=== PATIENT | female | born 1995 | race Caucasian/White ===

== ENCOUNTER → 2018-02-23 | Outpatient (CLI) | payer OTHER ==
[~2018-02-23] VITALS: Ht 163.8 cm; Wt 98.0 kg
[~2018-02-23] MED LIST: NEXPLANON68 MG ID
[2018-02-23 15:49] VITALS: BP 98/72; PULSE 80
== END ==
LOC: LIGHT 09:20
DX: E16.9 Disorder of pancreatic internal secretion, unspecified (principal); E28.2 Polycystic ovarian syndrome; M15.9 Polyosteoarthritis, unspecified; E66.9 Obesity, unspecified; Z68.36 Body mass index [BMI] 36.0-36.9, adult; Z71.3 Dietary counseling and surveillance
CPT/HCPCS: G0463

== ENCOUNTER → 2018-03-09 | Outpatient (CLI) | payer OTHER | LOC: LIGHT 13:06 | DX: E16.9 Disorder of pancreatic internal secretion, unspecified (principal); E28.2 Polycystic ovarian syndrome; M15.9 Polyosteoarthritis, unspecified; E66.9 Obesity, unspecified; Z68.36 Body mass index [BMI] 36.0-36.9, adult; Z71.3 Dietary counseling and surveillance ==

== ENCOUNTER → 2018-04-06 | Outpatient (CLI) | payer OTHER ==
[~2018-04-06] VITALS: Ht 163.8 cm; Wt 100.0 kg
[~2018-04-06] MED LIST changes: +GLUCOPHAGE500 MG/TAB PO; +PHENTERMINE15 MG PO
[2018-04-06 13:53] VITALS: BP 112/80; PULSE 100
== END ==
LOC: LIGHT 08:32
DX: E16.9 Disorder of pancreatic internal secretion, unspecified (principal); E28.2 Polycystic ovarian syndrome; M15.9 Polyosteoarthritis, unspecified; E66.9 Obesity, unspecified; Z68.37 Body mass index [BMI] 37.0-37.9, adult; Z71.3 Dietary counseling and surveillance
CPT/HCPCS: G0463

== ENCOUNTER → 2018-04-19 | Outpatient (CLI) | payer OTHER | LOC: LIGHT 12:56 | DX: E16.9 Disorder of pancreatic internal secretion, unspecified (principal); E28.2 Polycystic ovarian syndrome; M15.9 Polyosteoarthritis, unspecified; E66.9 Obesity, unspecified; Z68.37 Body mass index [BMI] 37.0-37.9, adult; Z71.3 Dietary counseling and surveillance ==

== ENCOUNTER → 2018-05-04 | Outpatient (CLI) | payer OTHER ==
[~2018-05-04] VITALS: Ht 163.8 cm; Wt 94.8 kg
[~2018-05-04] MED LIST changes: +ADIPEX-P37.5 MG PO; -PHENTERMINE15 MG PO
[2018-05-04 14:19] VITALS: BP 114/80; PULSE 84
== END ==
LOC: LIGHT 14:04
DX: E16.9 Disorder of pancreatic internal secretion, unspecified (principal); E28.2 Polycystic ovarian syndrome; M15.9 Polyosteoarthritis, unspecified; E66.9 Obesity, unspecified; Z68.35 Body mass index [BMI] 35.0-35.9, adult; Z71.3 Dietary counseling and surveillance
CPT/HCPCS: G0463

== ENCOUNTER → 2018-06-17 | Outpatient (CLI) | payer OTHER ==
[~2018-06-17] VITALS: Ht 163.8 cm; Wt 94.8 kg
[2018-06-17 14:16] VITALS: BP 116/72; PULSE 80
== END ==
LOC: LIGHT 10:50
DX: E16.9 Disorder of pancreatic internal secretion, unspecified (principal); E28.2 Polycystic ovarian syndrome; M15.9 Polyosteoarthritis, unspecified; E66.9 Obesity, unspecified; Z68.35 Body mass index [BMI] 35.0-35.9, adult; Z71.3 Dietary counseling and surveillance
CPT/HCPCS: G0463

== ENCOUNTER → 2018-08-05 | Outpatient (CLI) | payer OTHER ==
[~2018-08-05] VITALS: Ht 163.8 cm; Wt 94.3 kg
[2018-08-05 13:53] VITALS: BP 118/70; PULSE 72
== END ==
LOC: LIGHT 13:44
DX: E16.9 Disorder of pancreatic internal secretion, unspecified (principal); E28.2 Polycystic ovarian syndrome; M15.9 Polyosteoarthritis, unspecified; E66.9 Obesity, unspecified; Z68.35 Body mass index [BMI] 35.0-35.9, adult; Z71.3 Dietary counseling and surveillance
CPT/HCPCS: G0463

== ENCOUNTER → 2018-09-30 | Outpatient (CLI) | payer OTHER ==
[~2018-09-30] VITALS: Ht 163.8 cm; Wt 95.7 kg
[2018-09-30 12:00] VITALS: BP 100/74; PULSE 80
== END ==
LOC: LIGHT 09-02 14:51
DX: E16.9 Disorder of pancreatic internal secretion, unspecified (principal); E28.2 Polycystic ovarian syndrome; M15.9 Polyosteoarthritis, unspecified; E66.9 Obesity, unspecified; Z68.35 Body mass index [BMI] 35.0-35.9, adult; Z71.3 Dietary counseling and surveillance
CPT/HCPCS: G0463

== ENCOUNTER → 2018-10-28 | Outpatient (CLI) | payer OTHER ==
[~2018-10-28] VITALS: Ht 163.8 cm; Wt 95.9 kg
[2018-10-28 13:12] VITALS: BP 118/78; PULSE 80
== END ==
LOC: LIGHT 13:05
DX: E16.9 Disorder of pancreatic internal secretion, unspecified (principal); E28.2 Polycystic ovarian syndrome; M15.9 Polyosteoarthritis, unspecified; E66.9 Obesity, unspecified; Z68.35 Body mass index [BMI] 35.0-35.9, adult; Z71.3 Dietary counseling and surveillance
CPT/HCPCS: G0463

== ENCOUNTER → 2019-04-20 | Outpatient (CLI) | payer OTHER | END | disposition still patient (30) | LOC: COL.LAB 11:12 | DX: E55.9 Vitamin D deficiency, unspecified (principal) ==